=== PATIENT | male | born 1980 | race Caucasian/White ===

== ENCOUNTER 2021-03-14 21:02 | Emergency (ER) | payer SELFPAY ==
[2021-03-14 22:05] LABS: URINE APPEARANCE CLOUDY; URINE BILIRUBIN NEGATIVE (NEGATIVE); URINE BLOOD TRACE (NEGATIVE); URINE COLOR y; URINE GLUCOSE NEGATIVE (NEGATIVE); URINE KETONE NEGATIVE (NEGATIVE); URINE LEUKOCYTE ESTERASE 2+ (NEGATIVE); URINE NITRATE NEGATIVE (NEGATIVE); URINE PROTEIN(semi-quant) TRACE mg/dL (NEGATIVE); URINE UROBILINOGEN NORMAL (NORMAL); URINE WBC >50 /hpf (0-3)
[2021-03-14] MEDS ORDERED: VIBRAMYCIN HYC100 MG PO (22:09)
[2021-03-14 22:20] VITALS: BP 138/86
== END 2021-03-14 22:20 | disposition home or self-care (01) ==
LOC: ED 21:02
PROVIDERS: Nurse Practitioner Family
DX: N34.2 Other urethritis (principal); F17.210 Nicotine dependence, cigarettes, uncomplicated; Z20.2 Contact with and (suspected) exposure to infections with a predominantly sexual mode of transmission
CPT/HCPCS: J0696

== ENCOUNTER 2021-08-05 15:47 | Emergency (ER) | payer SELFPAY ==
[~2021-08-05] VITALS: Ht 177.8 cm; Wt 82.5 kg
[~2021-08-05 15:47] MED LIST: VIBRAMYCIN HYC100 MG PO
[2021-08-05 15:55] VITALS: BP 114/86
[2021-08-06 16:08] LABS: SYPHILIS AB SCREEN w REFLEX Negative (Negative)
== END 2021-08-05 17:10 | disposition home or self-care (01) ==
LOC: ED 15:47
PROVIDERS: Family Medicine
DX: Z20.2 Contact with and (suspected) exposure to infections with a predominantly sexual mode of transmission (principal); F17.210 Nicotine dependence, cigarettes, uncomplicated

== ENCOUNTER 2021-09-15 17:51 | Emergency (ER) | payer SELFPAY ==
[~2021-09-15] VITALS: Ht 177.8 cm; Wt 81.8 kg
[2021-09-15 18:47] LABS: BASO # 0.06 K/mm3 (0.02-0.10); EOS # 0.03 K/mm3 (0.04-0.40); EOS % 0.3 % (0.0-4.0); HEMATOCRIT 48.6 % (42.0-52.0); HEMOGLOBIN 16.5 g/dL (13.5-18.0); LYMPH# 2.05 K/mm3 (1.50-4.00); MEAN CELL VOLUME 89 fl (78-100); MEAN CORPUSCULAR HEMOGLOBIN 30 pg (27-31); MEAN CORPUSCULAR HGB CONC 34 g/dL (33-37); MEAN PLATELET VOLUME 10.3 fl (7.4-10.4); MONO # 0.71 K/mm3 (0.20-0.80); NEU # 9.03 K/mm3 (1.40-6.50); PLATELET COUNT 271 K/mm3 (130-400); RED BLOOD COUNT 5.45 M/mm3 (4.20-5.60); RED CELL DISTRIBUTION WIDTH 12.5 % (11.5-14.5); WHITE BLOOD COUNT 11.9 K/mm3 (4.8-10.8)
[2021-09-15 18:59] LABS: ALBUMIN 4.3 g/dL (3.5-5.0); POTASSIUM 3.8 mmol/L (3.5-5.1)
[2021-09-15 19:00] LABS: CALCIUM 9.6 mg/dL (8.3-10.5)
[2021-09-15 19:01] LABS: TOTAL PROTEIN 7.9 g/dL (6.4-8.3)
[2021-09-15 19:03] LABS: TOTAL BILIRUBIN 0.9 mg/dL (0.2-1.2)
[2021-09-15 19:24] LABS: URINE APPEARANCE CLEAR; URINE BILIRUBIN NEGATIVE (NEGATIVE); URINE BLOOD NEGATIVE (NEGATIVE); URINE COLOR YELLOW; URINE GLUCOSE NEGATIVE (NEGATIVE); URINE KETONE NEGATIVE (NEGATIVE); URINE LEUKOCYTE ESTERASE NEGATIVE (NEGATIVE); URINE MUCUS PRESENT (NOT PRESENT); URINE NITRATE NEGATIVE (NEGATIVE); URINE PROTEIN(semi-quant) TRACE mg/dL (NEGATIVE); URINE UROBILINOGEN NORMAL (NORMAL); URINE WBC 0-1 /hpf (0-3)
[2021-09-15 21:07] VITALS: BP 122/72
== END 2021-09-15 21:09 | disposition home or self-care (01) ==
LOC: ED 17:51
PROVIDERS: Family Medicine
DX: R10.31 Right lower quadrant pain (principal); F17.200 Nicotine dependence, unspecified, uncomplicated
CPT/HCPCS: Q9967